=== PATIENT | male | born 1955 | race Caucasian/White ===

== ENCOUNTER 2022-04-06 12:39 | Outpatient (REF) | payer MEDICARE, SELFPAY ==
[2022-04-06 13:16] LABS: MANUAL DIFF FLAG NO
[2022-04-06 13:19] LABS: Basophils Absolute Auto 0.1 X10*3/uL (0.0-0.2); Basophils Percent Auto 0.6 % (0-2); Eosinophils Absolute Auto 0.2 X10*3/uL (0.0-0.4); Eosinophils Percent Auto 2.7 % (0-4); Hematocrit 45.4 % (42.0-52.0); Hemoglobin 15.6 g/dl (14.0-18.0); Imm Gran Abs Auto 0.03 X10*3/uL (0.00-0.03); Imm Gran Pct Auto 0.3 % (0.0-0.4); Lymphocytes Absolute Auto 1.6 X10*3/uL (1.2-4.9); Lymphocytes Percent Auto 17.7 % (20-40); Mean Corpuscular HGB Conc 34.4 g/dl (31.0-36.0); Mean Corpuscular Hemoglobin 26.7 pg (27.0-33.0); Mean Corpuscular Volume 77.6 fL (80.0-98.0); Mean Platelet Volume 10.1 fL (9.4-12.4); Monocytes Absolute Auto 0.5 X10*3/uL (0.1-1.2); Monocytes Percent Auto 5.7 % (2-11); Neutrophils Absolute Auto 6.4 x10*3/uL (2.0-8.3); Platelet Count 260 X10*3/uL (160-400); Red Blood Count 5.85 X10*6/uL (4.60-5.80); Red Cell Distribution Width 13.2 % (11.0-16.0); White Blood Count 8.8 X10*3/uL (4.8-10.8)
[2022-04-06 13:37] LABS: Alanine Aminotransferase 17 U/L (0-40); Albumin Level 4.1 g/dL (3.5-5.0); Alkaline Phosphatase 79 U/L (39-117); Anion Gap 10 (12-20); Aspartate Amino Transferase 15 U/L (5-37); Bilirubin Total 0.6 mg/dL (0.0-1.0); Blood Urea Nitrogen 14 mg/dL (9-16); Calcium 9.2 mg/dL (8.4-10.2); Carbon Dioxide 29 mmol/L (22-29); Chloride 104 mmol/L (96-108); Cholesterol 238 mg/dL; Estimated Glomerular Filt Rate > 60; Glucose Fasting 123 mg/dL (60-99); HDL Cholesterol 49 mg/dL; LDL Cholesterol Calculated 154 mg/dl; Potassium 4.3 mmol/L (3.3-5.1); Sodium 139 mmol/L (135-145); Total Protein 6.9 g/dL (6.5-8.0); Triglycerides 177 mg/dL; Uric Acid 8.4 mg/dL (3.4-7.0)
[2022-04-06 13:58] LABS: Prostate Specific Antigen Scr 0.97 ng/mL (<0.05-4.0); TSH reflex Free T4 2.08 uIU/mL (0.32-4.0)
[2022-04-06 14:22] LABS: Folate > 20.0 ng/mL (> or = 4.0); Vitamin B12 293 pg/mL (200-900)
== END 2022-04-06 12:40 | disposition home or self-care (01) ==
LOC: HO.WFDLDS 12:39
PROVIDERS: Visit Provider Family Medicine
DX: Z00.00 Encounter for general adult medical examination without abnormal findings (principal); Z12.5 Encounter for screening for malignant neoplasm of prostate; R41.3 Other amnesia
CPT/HCPCS: 36415; 80053; 80061; 82607; 82746; 84153; 84443; 84550; 85025

== ENCOUNTER → 2022-04-14 10:00 | Outpatient (BNVA) | payer MEDICARE, SELFPAY | PROVIDERS: PCP Family Medicine; Visit Provider Physician Assistant | DX: Z01.818 Encounter for other preprocedural examination (principal); I25.10 Atherosclerotic heart disease of native coronary artery without angina pectoris | CPT/HCPCS: 99202 ==

== ENCOUNTER → 2022-04-30 13:59 | Outpatient (BNVA) | payer MEDICARE, SELFPAY | PROVIDERS: PCP Family Medicine; Visit Provider Nurse Practitioner Family | DX: Z01.818 Encounter for other preprocedural examination (principal) | CPT/HCPCS: 99202 ==

== ENCOUNTER 2022-06-01 13:00 | Outpatient (RCR) | payer MEDICARE, SELFPAY ==
[2022-04-20 11:10] VITALS: BP 140/78; PULSE 75; O2SAT 96
--- NOTE | 2022-05-06 11:50 | MHC.PT.EP ---
[facility] [place] Office [place] Office [place] Office [address] Gifty Tomlinson [address] [phone] F: [phone] F: [phone] F: [phone] F: [phone] Physical Therapy Plan of Care Date of Evaluation: Date of Surgery: Diagnosis: R29.898 Other symptoms and signs involving the musculoskeletal system, lower extremity weakness, signed by Dr. Burch on 03/24/22 Assessment: Pt is a R hand dominant 66 y/o retired male, referred to [facility] significant for CT in early 2021 (awaiting cardiology and neuro consults). Pt expressing recently obtained a new PCP following after moving. Pt expressing family history of Parkinsons (brother) presents with gait instability, lateral trunk lean, and impaired memory. Pt exhibits global deconditioning, impaired balance, decreased strength, and lack of current exercise regimen. Therapist recommending PT twice weekly however pt expressing that may be difficult for him due to transportation. Pt was offered Uber services offered by the hospital. Pt would benefit from having vital signs being monitored with exercise treatments - he never had cardiac rehab following history of CT in the spring. Prognosis is fair<>good based on level of motivation, medical history, and presentation of pt at time of evaluation. Frequency and Duration: The patient will be seen 2x/week x 4-6 weeks, pt states 1x/week may prefer Short Term Goals: 1. Pt will demonstrate sit<>engineer third assistant 30 seconds for 7 reps. (IR: 5 seconds). 2. Pt will demonstrate SLR into flexion with good dynamic balance. 3. Pt will demonstrate symmetrical bridge. (IR: weakness noted on L side greater). 4. Initiate HEP. Intermediate Goals: 1. Pt will demonstrate good eccentric control with functional transfers. 2. Pt will negotiate an 8 in ch step with good dynamic balance. 3. Strength hip abd 5/5 B. 4. Strength hip ext 5/5 B. 5. I HEP. 6. Ambulate community distances with std cane with good dynamic balance. Treatment Plan: Modalities to reduce pain, spasms and effusion. Manual therapy to restore motion and function. Therapeutic exercise to improve strength and flexibility. Neuromuscular re-education for posture and balance. Therapeutic activities to return to functional activities of daily living. Electronically signed by: Jaelyn Jackson PT, DPT Please sign and return to therapist. Thank you for your referral.
--- NOTE | 2022-06-04 12:45 | MHC.PT.OD ---
[facility] [place] Office [place] Office [place] Office [address] Gifty Tomlinson [address] [phone] F: [phone] F: [phone] F: [phone] F: [phone] Physical Therapy Daily Note Diagnosis: R29.898 Other symptoms and signs involving the musculoskeletal system, lower extremity weakness, signed by Dr. Burch on 03/24/22 Date of Surgery: Date of Evaluation: 04/22/22 Date of Treatment: 06/04/22 Treatments to Date: Cancellations to Date: No Shows to Date: Authorized Visits: 5 Insurance End Date: Precautions/ Contraindications:cardiac, fall risk Subjective: Pt stated went to the neurologist this week, expresses he has been using std cane. Pain Score and Location: Objective Flowsheet: Tests & Measures Vitals at start of session HR 56 bpm, Sp02 97%, BP 138/68mmHg [facility] Gastroenterology [address] [place] [address] [address] [place] [address] Office Visit Report Signed Patient: Rui Blankenship PMR#: [id number] : 1955cct:[id number] Age/Sex: 66 / MADM/SER Date: 04/30/22 Loc: HO.HGIADM/SER Time:1359 Attending Provider: Catalina BENITEZ-HALEY cc: Amish Burch MD; Catalina Arrieta~ Intake Vital Signs 04/30/22 14:07 Height 5 ft 9 in Weight 243 lb 2 oz BMI 35.9 BP 174/89 H Blood Pressure Location Rt brachial Position Sitting Pulse 75 Intake Visit Reasons: Colonoscopy Screening Intake Note: Rui presents in office for colonoscopy screening. pt cc: no concerns today pt denies any other GI issues Ladle Builder Required: No Accompanied by: Step Child Allergies allopurinol [ALLOPURINOL] Allergy (Unknown, Verified 04/30/22 14:06) DIZZY, FELT SICK HPI Colonoscopy Screening HPI Details 66 year old? male here today for pre colonoscopy screening.? Patient was sent to us by his PCP.? Patient denies any gastrointestinal symptoms in the past or at present.? However patient has history of bleeding peptic ulcer in 1998. Denies any personal or family history of gastrointestinal disease, colon polyps, or cancer.? Denies history of difficulty with sedation or anesthesia in the past.? Negative for history of sleep apnea.? Denies any history of renal, pulmonary, or hepatic disease.??Patient had CA in April of 2021. Cardiac catheterization with stents and was placed on Plavix and aspirin. Currently patient is not on any anticoagulation medication. Patient was under care of Cardiology in [place], however patient has not seen them for over a year and was referred by his PCP to our associate store manager here at [facility] [place]. Patient has a history of cocaine use before CA, however denies use of any drugs since. Patient denies any chest pain, pressure, palpitation, SOB with or without exertion, presyncope, syncope, edema No history of infectious? diseases like hepatitis A, B, C, HIV or tuberculosis.? [facility] Surgical History H/O arthroscopy of right knee H/O left inguinal hernia repair Social History Housing: House Patient Tobacco Use Status: Never used Tobacco e-Cigarette/Vaping Use: Never Used Second Hand Smoke Exposure: No service: No Current occupational status: retired Current occupational exposures/hazards: No Cognitive needs: No Hearing needs: No Vision needs: No Physical Exam Vital Signs: Last Vital Signs Pulse 75 04/30/22 14:07 BP 174/89 H 04/30/22 14:07 BMI result Body Mass Index 35.9 Assessment & Plan Assessment & Plan (1) Screening for colon cancer: Code(s): Z12.11 - Encounter for screening for malignant neoplasm of colon Plan: Patient denies any GI, cardiac or respiratory symptoms.? Patient had CA it over a year ago. Has not seen Cardiology since last visit in April of 2021. PCP send referral to Cardiology here at [facility] and he has an appointment on May 24. Denies any issues with anesthesia in the past.? Denies any history of sleep apnea.? No history infectious diseases in the past or present.? History of peptic ulcer bleed in 1998. ? No family or personal history of colon cancer or polyps.? Patient denies melena, hematochezia, unintentional weight loss or ribbon like stools.? Discussed at length the pre-procedure,? prep, diet & medications as well as what to expect prior, during and after the procedure.?? Stressed the importance of good bowel prep. ?Recommended the use of Vaseline or Calmoseptine OTC & baby wipes with bowel movements to promote comfort.? ?Patient verbalizes understanding and agrees to plan of care.? He was given the opportunity to ask questions and all questions answered.? We will see him after the procedure.? Medications: New bisacodyl (Dulcolax (bisacodyl)) take 2 tabs at noon the day before your colonoscopy 10 mg (2 x 5 mg) PO ONCE 2 tabs 0RF 1 day Z12.11 - Encounter for screening for malignant neoplasm of colon polyethylene glycol 3350 (Miralax) As directed by gastroenterology department at [facility] [place] 238 grams PO ONCE 238 grams 0RF Z12.11 - Encounter for screening for malignant neoplasm of colon Coding Level of Care Code New Pt Level 4 (31090) Diagnoses Screening for colon cancer Z12.11 Time Spent (min) 45 Comment 30 minutes spent with patient and additional 15 minutes spent reviewing his records Exercises Pt deferred this date, Cassie Valentine good. SEATED B HEEL RAISE, B TOE RAISE, HIP FLEX, X 10 R EA, SIT<>STAND X 5 R, SUP BRIDGE (LIMITED RANGE), HL BALL SQUEEZE, SLR X 10 R B, SL [place] X 10 R B WITH ABD BRACING with cues for redirection, STANDING AT BAR FOR B HEEL RAISE, HIP ABD, HIP FLEX X 10 R EA B discussed holding onto doorframe for support vs not using of chair for safety at home, Pt defer request to perform step/stairs, Cassie montanez. MULTIPLE RESTS and redirection due to poor tolerance Education for log roll getting out of bed, encouragement for sneaker/supportive footwear during therapy, presents in sandals ED RE PAINFREE EX WITH WATCH FOR CARDIAC SXS (SOB, CP, SWEATING, DIZZY). ED RE POSSIBLE BENEFIT FROM CARDIAC REHAB SO HEART CAN BE MONITORED DURING EX Modalities Assessment: Pt has attended five session of PT since start of care on , demonstrating limited gains. He has been issued a written HEP program and expresses some degree of compliance with these activities. During therapy he requires constant redirection and cues to focus on completing exercise task as he tends to get distracted and stops exercising. Limited motivation and active participation. Pt expresses he went to the neurology consult, has been using a cane since last PCP appt and feels he is more stable in his ambulation. He denies any form of fall in recent days. He expresses he has been sleeping on a cot and reports stiffness and inability to perform some exercises at home related to this. He defers completion of specific activities in the clinic which therapist proposes on multiple occasions and states, Nah Im good. Pt was educated in the importance/need to actively participate if he should continue with PT. Therapist is recommending patient follow up with PCP at this time due to plateaued status. Patient did not appear to understand what therapist was trying to convey to him regarding his participation levels and status towards goals with PT. PT Plan: SLOW PROGRESSION OF LE/CORE STRENGTHENING, BAL WORK Pt TO MAKE ONE MORE APPT WITH PRIMARY PT FOR REVIEW. CONT VS CARDIAC REHAB Short Term Goals: 1. Pt will demonstrate sit<>leasing assistant 30 seconds for 7 reps. (IR: 5 seconds). 2. Pt will demonstrate SLR into flexion with good dynamic balance. 3. Pt will demonstrate symmetrical bridge. (IR: weakness noted on L side greater). 4. Initiate HEP. Retirement Goals: 1. Pt will demonstrate good eccentric control with functional transfers. 2. Pt will negotiate an 8 in ch step with good dynamic balance. 3. Strength hip abd 5/5 B. 4. Strength hip ext 5/5 B. 5. I HEP. 6. Ambulate community distances with std cane with good dynamic balance. Electronically signed by: Jaelyn Jackson, PT, DPT
== END 2022-06-22 14:52 | disposition home or self-care (01) ==
LOC: HO.PTWFD 13:00
PROVIDERS: Visit Provider Family Medicine
DX: R29.898 Other symptoms and signs involving the musculoskeletal system (principal)
CPT/HCPCS: 97110; 97162; 97530

== ENCOUNTER 2022-06-11 15:05 | Outpatient (REF) | payer MEDICARE, SELFPAY ==
--- NOTE | ~2022-06-11 | CT_ITS ---
EXAMINATION: CT HEAD WITHOUT CONTRAST CLINICAL INFORMATION: Mild cognitive impairment COMPARISON: None TECHNIQUE: Contiguous axial imaging was performed from the skull base to vertex without intravenous administration of contrast. This CT examination was performed using dose optimization techniques as appropriate, variously including the following: *Automated exposure control *Adjustment of mA and/or kV according to patient size (this includes techniques or standardized protocols for targeted exams where dose is matched to indication/reason for exam; i.e. extremities or head) *Use of iterative reconstruction technique DLP: 932 mGy-cm FINDINGS: There is no evidence of an extra-axial collection. There is no evidence of intra-axial extra-axial hemorrhage. The ventricles and extra-axial CSF spaces are slightly prominent suggestive of mild generalized atrophy. There is nonspecific periventricular white matter disease. There are old-appearing bilateral basal ganglia and right thalamic lacunar infarcts. No mass, mass effect or other infarct is seen. Review at bone windows is normal. No skull fracture. Paranasal sinuses, mastoid air cells and middle ears are clear. CT/CT head/brain wo IV con IMPRESSION: Mild generalized atrophy. 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
== END 2022-06-11 15:06 | disposition home or self-care (01) ==
LOC: HO.CT 15:05
PROVIDERS: Visit Provider Psychiatry & Neurology Neurology
DX: G31.84 Mild cognitive impairment of uncertain or unknown etiology (principal)
CPT/HCPCS: 70450

== ENCOUNTER → 2022-08-09 14:28 | Outpatient (BNVA) | payer MEDICARE, SELFPAY | PROVIDERS: PCP Family Medicine; Referring Provider Family Medicine; Visit Provider Internal Medicine | DX: Z01.810 Encounter for preprocedural cardiovascular examination (principal); I25.10 Atherosclerotic heart disease of native coronary artery without angina pectoris; I44.1 Atrioventricular block, second degree; I10 Essential (primary) hypertension; F14.10 Cocaine abuse, uncomplicated | CPT/HCPCS: 93005; 99202 ==

== ENCOUNTER 2022-08-24 06:48 | Emergency (ER) | payer MEDICARE, SELFPAY ==
[2022-08-24] VITALS (7 sets, daily range): BP systolic 138–167; BP diastolic 62–89; PULSE 78–91; RESP 14–20; TEMP 36.6–37.4; O2SAT 97–99; BMI 32.1
--- NOTE | ~2022-08-24 | XR_ITS ---
EXAMINATION: XR KNEE, RIGHT CLINICAL INFORMATION: Limited range of motion. No injury. COMPARISON: None TECHNIQUE: Four views of the right knee. FINDINGS: Bones and soft tissues are normal. No fracture or joint effusion. Alignment is anatomic. Joint spaces are well maintained. No abnormal soft tissue calcification. XR/XR knee RT 4V IMPRESSION: Unremarkable right knee exam.
[2022-08-24 10:15] LABS: MANUAL DIFF FLAG NO
[2022-08-24 10:17] LABS: Influenza A PCR NEGATIVE (Negative); Influenza B PCR NEGATIVE (Negative); Resp Syncy Virus RNA Qual PCR NEGATIVE (Negative); SARS COV2 PCR INHOUSE POSITIVE (Negative)
[2022-08-24 10:19] LABS: Basophils Absolute Auto 0.1 X10*3/uL (0.0-0.2); Basophils Percent Auto 0.5 % (0-2); Hematocrit 45.1 % (42.0-52.0); Hemoglobin 15.4 g/dl (14.0-18.0); Imm Gran Abs Auto 0.03 X10*3/uL (0.00-0.03); Imm Gran Pct Auto 0.3 % (0.0-0.4); Lymphocytes Absolute Auto 1.2 X10*3/uL (1.2-4.9); Lymphocytes Percent Auto 10.9 % (20-40); Mean Corpuscular HGB Conc 34.1 g/dl (31.0-36.0); Mean Corpuscular Hemoglobin 27.3 pg (27.0-33.0); Mean Platelet Volume 10.3 fL (9.4-12.4); Monocytes Absolute Auto 1.2 X10*3/uL (0.1-1.2); Monocytes Percent Auto 10.6 % (2-11); Neutrophils Absolute Auto 8.6 x10*3/uL (2.0-8.3); Neutrophils Percent Auto 77.7 % (45-73); Platelet Count 244 X10*3/uL (160-400); Red Blood Count 5.64 X10*6/uL (4.60-5.80); White Blood Count 11.1 X10*3/uL (4.8-10.8)
[2022-08-24 10:34] LABS: Anion Gap 15 (12-20); Blood Urea Nitrogen 21 mg/dL (9-16); Calcium 9.4 mg/dL (8.4-10.2); Carbon Dioxide 30 mmol/L (22-29); Chloride 99 mmol/L (96-108); Creatinine Clr Calc Pharmacy 62.8; Estimated Glomerular Filt Rate 53; Glucose Random 151 mg/dL (60-115); Potassium 4.2 mmol/L (3.3-5.1); Sodium 140 mmol/L (135-145)
--- NOTE | 2022-08-24 10:53 | ED.GENADULT ---
HPI - General Adult General Chief complaint: General Medical Stated complaint: knee pain Time Seen by Provider: 08/24/22 08:06 Related Data Home Medications Medication Instructions Recorded Confirmed aspirin 81 mg tablet,delayed 81 mg PO DAILY 02/08/22 08/09/22 release Previous Rx's Medication Instructions Recorded cane #1 ea 03/22/22 chlorhexidine gluconate 4 % 1 appl topical .2 times a week 30 03/22/22 topical liquid (Hibiclens) days #237 mL bisacodyl 5 mg tablet,delayed 10 mg PO ONCE 1 day #2 tabs 04/30/22 release (Dulcolax (bisacodyl)) polyethylene glycol 3350 17 238 g PO ONCE #238 grams 04/30/22 gram/dose oral powder (Miralax) atorvastatin 80 mg tablet 80 mg PO BEDTIME 90 days #90 tabs 06/24/22 amlodipine 5 mg tablet (Norvasc) 5 mg PO DAILY #90 tabs 08/09/22 nirmatrelvir 300 mg (150 mg See Rx Instructions PO .COMPLEX 08/24/22 x2)-ritonavir 100 mg tablet,dose #30 ea pack(EUA) (Paxlovid) Allergies Allergy/AdvReac Type Severity Reaction Status Date / Time allopurinol [ALLOPURINOL] Allergy Unknown DIZZY, Verified 08/09/22 14:31 FELT SICK PMFSH Past Medical History Medical History (Updated 08/24/22 @ 13:08 by Diya Fry MD) CAD (coronary artery disease) Cocaine abuse Essential hypertension History of DE (myocardial infarction) Hyperlipidemia Surgical History H/O arthroscopy of right knee H/O left inguinal hernia repair Family History Family History (Updated 08/09/22 @ 15:06 by Justo Rivas MD) Mother CHF (congestive heart failure) Social History Social History Housing: House Patient Tobacco Use Status: Never used Tobacco e-Cigarette/Vaping Use: Never Used Second Hand Smoke Exposure: No Advance Directives: Yes Advance Directives Information Provided: Yes Advance Directives on File: No service: No Current occupational status: retired Current occupational exposures/hazards: No Cognitive needs: No Hearing needs: No Vision needs: No Physical Exam ED Vital Signs: Vital Signs - 24 hr 08/24/22 06:56 08/24/22 07:26 08/24/22 10:14 Temperature 98 F 99.3 F 99.1 F Pulse Rate 91 81 87 Respiratory Rate 17 16 18 Blood Pressure 167/85 H 149/62 H 151/89 H Pulse Oximetry 98 97 99 Oxygen Delivery Method Room Air Room Air Room Air 08/24/22 11:01 08/24/22 11:21 Temperature 99.0 F Pulse Rate 88 88 Respiratory Rate 14 Blood Pressure 155/89 H 155/89 H Pulse Oximetry 98 98 Oxygen Delivery Method Room Air BMI result Body Mass Index 32.1 Medications Administered Discontinued Medications Generic Name Dose Route Start Last Admin Trade Name Freq PRN Reason Stop Dose Admin Sodium Chloride 1,000 mls @ 999 mls/hr 08/24/22 10:45 08/24/22 11:30 Ns IV 08/24/22 11:45 999 mls/hr .Q1H1M MICHELINE Administration Medical Decision Making MDM Narrative Medical decision making narrative: Patient's COVID test came back positive. Likely the cause of patient's generalized malaise. X-ray the knee showed no acute fracture. Patient's O2 sat 96% on room air. Ambulated well in the emergency department. leadership development manager evaluated patient. Will discharge patient home with VNA. In stable condition. Patient is on atorvastatin. He is not vaccinated. Will prescribe patient Paxil overt will ask patient to stop the atorvastatin for 2 weeks. He is currently in stable condition. Lab Data Result diagrams: 08/24/22 10:11 08/24/22 10:11 Labs: Lab Results 08/24/22 08/24/22 08/24/22 Range/Units 09:33 10:11 10:11 WBC 11.1 H (4.8-10.8) X10*3/uL RBC 5.64 (4.60-5.80) X10*6/uL Hgb 15.4 (14.0-18.0) g/dl Hct 45.1 (42.0-52.0) % MCV 80.0 (80.0-98.0) fL MCH 27.3 (27.0-33.0) pg MCHC 34.1 (31.0-36.0) g/dl RDW 13.0 (11.0-16.0) % Plt Count 244 (160-400) X10*3/uL MPV 10.3 (9.4-12.4) fL Immature Gran % (Auto) 0.3 (0.0-0.4) % Neut % (Auto) 77.7 H (45-73) % Lymph % (Auto) 10.9 L (20-40) % Saline % (Auto) 10.6 (2-11) % Eos % (Auto) 0.0 (0-4) % Baso % (Auto) 0.5 (0-2) % Lymph # (Auto) 1.2 (1.2-4.9) X10*3/uL Saline # (Auto) 1.2 (0.1-1.2) X10*3/uL Eos # (Auto) 0.0 (0.0-0.4) X10*3/uL Baso # (Auto) 0.1 (0.0-0.2) X10*3/uL Abs Immat Gran (auto) 0.03 (0.00-0.03) X10*3/uL Absolute Neuts (auto) 8.6 H (2.0-8.3) x10*3/uL Absolute Nucleated RBC 0.000 (0.0-0.012) X10*3/uL Nucleated RBC % (auto) 0.0 (0.0-0.2) /100WBC Sodium 140 (135-145) mmol/L Potassium 4.2 (3.3-5.1) mmol/L Chloride 99 (96-108) mmol/L Carbon Dioxide 30 H (22-29) mmol/L Anion Gap 15 (12-20) BUN 21 H (9-16) mg/dL Creatinine 1.34 (0.5-1.4) mg/dL Estim Creat Clear Calc 62.8 Estimated GFR 53 Random Glucose 151 H (60-115) mg/dL Calcium 9.4 (8.4-10.2) mg/dL Total Creatine Kinase 464 H (38-174) U/L Influenza Type A (PCR) NEGATIVE (Negative) Influenza Type B (PCR) NEGATIVE (Negative) RSV RNA Qual (PCR) NEGATIVE (Negative) SARS-CoV-2 RNA (RT-PCR) POSITIVE A (Negative) Discharge Plan Discharge Clinical Impression: COVID-19, Chronic knee pain Patient Disposition: Home, Self-Care Instructions: COVID-19 (Coronavirus Disease 2019) (ED) Additional Instructions: Please stop taking the Lipitor or atorvastatin for the next 2 weeks. Prescriptions: New Paxlovid (EUA) 300 mg (150 mg x 2)-100 mg tablets,dose pack See Rx Instructions .ROUTE .COMPLEX Qty: 30 0RF Rx Instructions: take TWO 150 mg tablets of nirmatrelvir with ONE 100 mg tablet of ritonavir twice daily for 5 days No Action aspirin 81 mg tablet,delayed release (DR/EC) 81 mg PO DAILY chlorhexidine gluconate [Hibiclens] 4 % liquid 1 appl topical .2 times a week 30 Days Qty: 237 2RF (DME) cane Device See Rx Instructions .Route Qty: 1 0RF Rx Instructions: As directed, 999 days atorvastatin 80 mg tablet 80 mg PO BEDTIME 90 Days Qty: 90 4RF bisacodyl [Dulcolax (bisacodyl)] 5 mg tablet,delayed release (DR/EC) 10 mg PO ONCE 1 Days Qty: 2 0RF Rx Instructions: take 2 tabs at noon the day before your colonoscopy polyethylene glycol 3350 [Miralax] 17 gram/dose powder 238 g PO ONCE Qty: 238 0RF Rx Instructions: As directed by gastroenterology department at [facility] amlodipine [Norvasc] 5 mg tablet 5 mg PO DAILY Qty: 90 3RF [facility] [[facility]]
[2022-08-24] MEDS: 0.9 % Sodium Chloride 1,000 ML 999 ML IV (11:30)
--- NOTE | 2022-08-24 12:49 | MHC.CM.ED ---
Received case management consult from Dr Fry. Patient came to the ER due to knee pain after a fall. Work up found patient to be positive for covid. Physical therapy eval completed. Home services are recommended. Met with patient in regards to discharge planning. Patient lives with his 2 grandchildren, their father and his girlfriend. Patient ambulates with a cane. PCP verified. Patient has not received any Covid vaccines. Patient denies having a HCP. Information provided. Patient not interested in completing one at this time. Patient agreeable to referral to [facility] for nursing home and physical therapy when patient is ready for discharge. Patient's family will transport him home when medically stable. Patient, Simón BRIGGS and Dr Fry aware. Continue to monitor for d/c needs.
== END 2022-08-24 14:36 | disposition home or self-care (01) ==
PROVIDERS: Emergency Provider Emergency Medicine Emergency Medical Services; PCP Family Medicine
DX: U07.1 COVID-19 (principal); M25.562 Pain in left knee; M25.561 Pain in right knee; R26.81 Unsteadiness on feet; I25.10 Atherosclerotic heart disease of native coronary artery without angina pectoris; Z79.899 Other long term (current) drug therapy
CPT/HCPCS: 0241U; 36415; 73564; 80048; 82550; 85025; 97162; 99284